=== PATIENT | female | born 1955 | race Caucasian/White ===

== ENCOUNTER → 2024-02-05 06:52 | Outpatient (REF) | payer MEDICARE, OTHER, SELFPAY ==
[2024-02-05 07:49] LABS: % Basophils 0.4 % (0-2); % Eosinophils 3.1 % (0-6); % Immature Granulocytes 0.4 % (0-0.5); % Lymphocytes 31.3 % (20.5-51.1); % Monocytes 12.6 % (1.7-9.3); % Neutrophils 52.2 % (42.2-75.2); Absolute Eosinophils 0.1 10^3/uL (0-0.7); Absolute Lymphocytes 1.4 10^3/uL (1.2-3.4); Absolute Monocytes 0.6 10^3/uL (0.1-0.6); Absolute Neutrophils 2.4 10^3/uL (1.4-6.5); Hematocrit 34.8 % (37.0-47.0); Mean Corp Hgb Conc. 34.5 g/dL (33.0-37.0); Mean Corpuscular Hgb 31.1 pg (27.0-31.0); Mean Corpuscular Volume 90.2 fL (81.0-99.0); Mean Platelet Volume 10.7 fL (7.4-10.4); Nucleated Red Blood Cells % 0 %; Platelet Count 176 10^3/uL (130-400); Red Blood Cell Count 3.86 10^6/uL (4.20-5.40); Red Cell Dist. Width 12.5 % (11.5-14.5); White Blood Cell Count 4.5 10^3/uL (4.8-10.8)
[2024-02-05 08:17] LABS: ALT (SGPT) 50 U/L (0-35); AST (SGOT) 33 U/L (14-36); Albumin 4.2 g/dl (3.5-5.0); Alkaline Phosphatase 76 U/L (38-126); Blood Urea Nitrogen 15 mg/dl (7-17); Calcium 9.7 mg/dl (8.4-10.2); Carbon Dioxide 25 mmol/L (22-30); Chloride 103 mmol/L (98-107); Glucose 108 mg/dl (70-99); HDL Cholesterol 77 mg/dl; LDL Cholesterol, Calculated 52 mg/dl; Potassium 4.4 mmol/L (3.5-5.1); Sodium 140 mmol/L (135-145); Total Bilirubin 1.1 mg/dl (0.2-1.3); Total Cholesterol 165 mg/dl (50-199); Total Protein 6.4 g/dl (6.3-8.2); Triglyceride 181 mg/dl (10-149); Very Low Density Lipoprotein 36 mg/dl (0-30); eGFR > 60.00
[2024-02-05 08:53] LABS: Glycohemoglobin (HgbA1c) 5.8 % (4.0-5.6)
== END ==
LOC: REG 06:52
PROVIDERS: ATTENDING PHYSICIAN Family Medicine
DX: R73.03 Prediabetes (principal); E78.2 Mixed hyperlipidemia; R53.83 Other fatigue
CPT/HCPCS: 36415; 80053; 80061; 83036; 85025

== ENCOUNTER → 2024-02-23 09:58 | Outpatient (REF) | payer MEDICARE, OTHER, SELFPAY | LOC: HWRAD 09:58 | PROVIDERS: ATTENDING PHYSICIAN Family Medicine | DX: F17.210 Nicotine dependence, cigarettes, uncomplicated (principal); Z12.2 Encounter for screening for malignant neoplasm of respiratory organs | CPT/HCPCS: 71271 ==

== ENCOUNTER 2024-03-09 07:54 | Day surgery (SDC) | payer MEDICARE, OTHER, SELFPAY ==
[2024-02-26 08:52] VITALS: BMI 26.7
[2024-03-09] VITALS (8 sets, daily range): BP systolic 125–160; BP diastolic 75–92; BMI 25.9
[2024-03-09 11:48] LABS: ACT-LR - POC 189 Seconds (116-155)
[2024-03-09 11:54] LABS: ACT-LR - POC 343 Seconds (116-155)
[2024-03-09 12:15] LABS: ACT-LR - POC 313 Seconds (116-155)
[2024-03-09 12:44] LABS: ACT-LR - POC 342 Seconds (116-155)
--- NOTE | 2024-03-09 13:00 | ITS.CL.ABL ---
[employer] - Ablation
Ablation
Procedure Report:
AFIB ablation:
Ms. Pimentel is a very pleasant 68 yr old woman with symptomatic persistent AF s/p AF ablation 2022 with PVI (RF with RACHEL) had recurrent atrial fibrillation / flutter with baseline bradycardia limiting use of negative chronotropic agents is
recommended a redo AF / AFL ablation.
Date of the Procedure:
03/09/2024
Indications:
Persistent with recurrent atrial fibrillation / Flutter
Pre-Operative Diagnosis:
Persistent with recurrent atrial fibrillation / Flutter
Post-Operative Diagnosis:
Persistent with recurrent atrial fibrillation / Flutter
Procedure Performed:
Atrial fibrillation ablation with Pulsed-Field approach for pulmonary vein isolation
Posterior wall isolation
Mitral flutter ablation
Left atrial anterior wall focal tachycardia ablation
Biatrial flutter ablation
Focal left atrial appendage tachycardia
Performing Physician:
Shmuel Alston MD
Assistants:
EP staff
Anesthesia:
See anesthesia records
Detailed Description of the Procedure:
Written informed consent was obtained from the patient after a full explanation of the risks and benefits of the procedure including the risks of sedation and anesthesia.
The patient was brought to the electrophysiology laboratory in stable condition in fasting state. Continuous electrocardiographic and hemodynamic monitoring was initiated.
The initial rhythm was sinus bradycardia that went into atrial flutter spontaneously.
The procedure site was meticulously prepared with surgical scrub and allowed to dry with no pooling. Sterile draping was applied to cover the procedure site. The image intensifier was draped with sterile bag and positioned over the patient. After
infusion of local anesthetic, vascular access was obtained under ultrasound guidance and sheaths were placed over guide wire as detailed below.
Sheath and Catheter Placement:
The following catheters / sheaths were placed
Sheaths:
��������� 17Fr steerable sheath (Faradrive�, [place]) in right femoral
��������� 9Fr in right femoral vein
Catheters:
��������� RACHEL HD Grid mapping catheter � at locations of RA, LA
��������� Farawave� PFA catheter
��������� ICE catheter -AcuNav - at locations of RA, SVC, and RV.
��������� Decapolar Bard catheter in RA and CS
Intracardiac ECHO:
An 8-Liberian AcuNav intracardiac ECHO (ICE) probe was advanced through the 9-Liberian sheath in the right femoral vein into the right atrium under fluoroscopic and ICE ultrasound image guidance and a baseline ECHO study was performed. The left atrial
size was dilated. There was moderate tricuspid regurgitation. The aortic valve was grossly normal. There was normal left ventricular systolic functions. There is no pericardial effusion. All the four veins were identified and has flow identified.
There was sluggish flow noted in the BESSY with decreased velocities noted on Doppler.
During the procedure, ICE was used for monitoring of complications, guidance of trans-septal puncture, monitor the catheter position and tracking ablation lesions. No change in the pericardial space noted throughout the procedure.
Trans-septal Puncture:
Heparin was initiated and infused to maintain appropriate ACT. A pigtail guidewire was advanced through the 8-Liberian sheath in the right femoral vein into the superior vena cava under fluoroscopic and ICE guidance. The 9-Liberian sheath was exchanged
for a Faradrive sheath which was advanced into the superior vena cava. A transseptal RF pigtail via Faradrive connect system was utilized to perform the trans-septal puncture. The apparatus was withdrawn until it was in contact with the fossa
ovalis. The position was adjusted based on fluoroscopy and ultrasound images from ICE. Under fluoroscopic, hemodynamic and ICE ultrasound guidance, left atrium was cannulated by applying RF energy. Once atrial septum was cannulated, the pigtail wire
was advanced through the needle into the left atrium. The guide wire was advanced into the left superior pulmonary vein. Both the sheath and the dilator was advanced into the left atrium. The dilator with the needle was withdrawn. Blood was
aspirated from the Faradrive sheath and arterial blood confirmed. The sheath was flushed. Saline injection noted into the left atrium on ICE. The mapping catheter was advanced in the sheath into the left pulmonary vein. Left atrial pressure was
measured.
3D Electroanatomic Mapping:
Using the HD Grid catheter advanced through sheath into the left atrium, an electroanatomic map (EAM) of the left atrium was created using [employer] RACHEL mapping system. The map was used for localization of catheter position and tacking of ablation
lesions.
The EAM of the left atrium showed 4 pulmonary veins with all 4 veins electrically isolated from the body the LA. It showed scattered areas of scar on the anterior wall of the LA. The LA was dilated in size.
The LA was dilated in size.
Following the EAM, preparation were made for ablation.
Ablation:
Ablation # 1: Pulmonary vein Isolation:
Glycopyrrolate 0.2 mg was given prior to the placement of ablation. Given the PVs were isolated from the previous ablation, decision was made to extend the WACA lesions. Using Farave pulsed wave ablation system, pulmonary vein isolation was
achieved. First the ablation catheter was placed in the RSPV and ostial ablation lesions were performed in a counter clock henriquez approach all around the PV ostium circumferentially. Then the catheter was placed on the antral location and multiple
ablation lesions were placed circumferentially on the antrum of the vein.
In the similar fashion, the other veins were extended widely as well.
Patient remained in atrial flutter.
Ablation # 2: Roof line and Posterior wall isolation:
With atrial flutter, present and scar on the anterior wall, decision was made to create the roof block first. A series of ablations were placed from RSPV to LSPV in the roof of the LA.�
The flutter continued.
Using the pulsed field ablation catheter, the catheter was placed on the posterior wall and moved around the posterior wall to have adequate contact and ablations were placed isolating the posterior wall.
Electroanatomic mapping of LA
Once the sinus rhythm achieved, the LA was mapped with HD grid in detail. The tachcyardia was involving the anterior wall and revolving around a scar to the mitral valve.
Ablation # 3: Mitral Flutter ablation:
The flutter was entrained from the right and the left atria. The right side was out. The left atrium was in the tachycardia.
The flutter was mapped but degenerated into atrial fibrillation.
Using the Farapulse ablation catheter, the ablation catheter was put on the anterior wall of the LA with already scar present. Ablations were placed on anterior wall from roof to the mitral isthmus. The tachycardia terminated into sinus rhythm.
EPS and Confirmation of the PVI and bidirectional block:
Following achievement of entrance block at the pulmonary veins, pacing from the HD catheter in each of the four veins at 10 milliamps for 2 milliseconds showed entrance and exit block. All PVI were rechecked at the end of the case and remained
isolated with dissociated and local capture with pacing. Entrance and exit block were demonstrated in all veins.
The LA was mapped in atrial paced rhythm. Patient remained in atrial paced for few minutes and with mapping the LA went into tachycardia. The tachycardia was fast 240 msec.
Ablation # 4: Focal/Micro-reentry atrial tachycardia ablation:
The tachycardia was fast (240 ms)but entrainment was attempted from the RA. The RA was out of the tachycardia circuit. The tachycardia was entrained but was difficult to assess the focal vs re-entry due to intermittent capture of the LA and
extensive scarring. The mapping was done using HD grid showing the origin in the anterior wall of the LA.
The farapulse ablation catheter was moved into a flower shape and placed on origin with focal AT vs micro-rentry AFL. With placement of the ablation, the tachycardia terminated.
The tachycardia was again inducible and was noted at the earliest at the Atiya bundle location with concentric in CS activation.
Ablation # 5: Bi-Atrial Flutter Ablation:
Using the Farapulse ablation catheter, the flower was placed on the atrial septum at the Atiya bundle location and ablation was placed terminating the tachycardia to sinus rhythm.
Further induction maneuvers again able to induce another tachycardia at 220 ms and was again mapped.
Ablation # 5: Focal AT vs microreentry tachycardia from the left atrial appendage.
The tachycardia was mapped and was noted to be coming from the anterior base of the BESSY. This is close to the mitral isthmus and with concern for LCx injury, the ablation catheter shaped was modified to an elongated [place] and was placed at the base
of the anterior BESSY. The catheter bump terminated the tachycardia and ablation was applied to suppress further induction.
Post ablation Electroanatomic mapping:
Once ablation was completed, the EAM of the LA was done again in sinus rhythm with excellent demarcation of LA myocardium and isolated antral tissue.
The BESSY had healthy signals and was not isolated.
Procedure End
ICE study was done again that showed no epicardial accumulation. No complications noted.
Following the completion of the EP study, catheters were removed. Protamine 30 mg was given at the end of the procedure and ACT was checked repeatedly. The sheaths were removed and hemostasis achieved with VASCADE and manual compression after
acceptable ACT is achieved.
Left atrial Pressure:
Mean LA pressure was 11mmHg
Estimated Blood loss:
<10 cc
Specimens Removed:
None.
Implants / Devices:
None
Urine output:
None
Packs / Drains/ Tubes:
None
Instrument / Sponge Count Correct:
Yes
Complications of the Procedure:
None
Condition of Patient at Time of Transfer:
Hemodynamically stable with no neurological or vascular compromise.
Summary:
Successful atrial fibrillation ablation with Pulsed Field approach for pulmonary vein isolation, posterior wall isolation, Mitral flutter ablation, Left atrial anterior wall focal tachycardia ablation, Biatrial flutter ablation, Focal Atrial
tachycardia from the left atrial appendage.
Figures from the Procedure:
Figure 1: The electroanatomic mapping (EAM) of the left atrium with bipolar voltage (purple indicates normal electrical activity with del cid as no myocardial muscle electric activity indicating a line of block or scar.
[2024-03-09] MEDS: ANESTHETIC LOZENGE 1 LOZENGE PO (13:31)
[2024-03-09] MEDS: TYLENOL 650 MG PO (14:38)
[2024-03-09 15:07] LABS: ACT-LR - POC > 397 Seconds (116-155)
--- NOTE | 2024-03-09 16:17 | W.PN.UPDATE ---
Update Note
Progress Note Update
68 yo WF s/p PVI/Aflutter ablation (same day). She feels good, no cp, sob, raghu diet, voiding, amb w/o dizziness, EKG SR with RBBB, PAC's, R fem site c/d/i VASCADE. She will resume Eliquis tonight at home. Activity restrictions reviewed. She will f/u
CERTIFIED MEDICAL AIDE in 2 weeks. She is for d/c home after 5pm if groin stable.
Procedure Performed:
Atrial fibrillation ablation with Pulsed-Field approach for pulmonary vein isolation
Posterior wall isolation
Mitral flutter ablation
Left atrial anterior wall focal tachycardia ablation
Biatrial flutter ablation
Focal left atrial appendage tachycardia
== END 2024-03-09 17:00 | disposition home or self-care (01) ==
LOC: CATH 07:54
PROVIDERS: ATTENDING PHYSICIAN Internal Medicine Cardiovascular Disease; FAMILY PHYSICIAN Family Medicine; OTHER PHYSICIAN Internal Medicine Cardiovascular Disease
DX: I48.19 Other persistent atrial fibrillation (principal); I49.8 Other specified cardiac arrhythmias; I48.92 Unspecified atrial flutter; Z79.01 Long term (current) use of anticoagulants; Z79.899 Other long term (current) drug therapy; R73.03 Prediabetes; I10 Essential (primary) hypertension; E78.5 Hyperlipidemia, unspecified
CPT/HCPCS: C1732; C1894; C1730; C1892; C1759; 85347; 93005; 93655; 93656; 93657; C1733; C1760; C1766

== ENCOUNTER 2024-12-03 14:33 | Emergency (ER) | payer MEDICARE, OTHER, SELFPAY ==
[2024-12-03] VITALS (20 sets, daily range): BP systolic 95–152; BP diastolic 44–104; BMI 27.4
[2024-12-03 15:22] LABS: Hematocrit 36.6 % (37.0-47.0); Hemoglobin 12.8 g/dL (12.0-16.0); Mean Corp Hgb Conc. 35.0 g/dL (33.0-37.0); Mean Corpuscular Volume 89.9 fL (81.0-99.0); Nucleated Red Blood Cells % 0 %; Platelet Count 203 10^3/uL (130-400); Red Cell Dist. Width 11.9 % (11.5-14.5)
--- NOTE | 2024-12-03 15:23 | ED.GENMED ---
History of Present Illness
General
Chief Complaint: Chest Pain
Source: patient and other (Friend)
Exam Limitations: none
Time Seen by Provider: 12/03/24 15:23
History of Present Illness
History of Present Illness:
68-year-old female presents emergency department after taking a nap and waking at approximate 1:45 PM because her watch woke her up signaling that her heart rate was elevated. She took her blood pressure and it was elevated which prompted her visit
here. She states that since she woke up from the nap she feels slightly dyspneic and nauseous but denies chest pain, fever, chills, vomiting, leg swelling, or other complaints. Patient has a history of atrial fibrillation, status post ablation
March 2024, states she has not been in atrial fibrillation to her knowledge since that time. She is compliant with her anticoagulation and is not currently taking rate controlling medications.
Past History
Past History
ED Past Medical History: Arrthythmia (Paroxysmal atrial fibrillation), HTN, Hypercholesterolemia and Other (Prediabetes)
ED Past Surgical History: Orthopedic and Other (Cataract surgery bilaterally)
Social History
Tobacco: Smoker
Alcohol: Occasional
Drug: None
Personal:
Living: alone
Phy Exam
Physical Exam
Physical Exam:
GENERAL: Alert , in no apparent distress
EYE: pupils equal and reactive
NECK: Supple, no significant adenopathy.
ENT: o/p clr, mmm.
CARDIAC: Irregularly irregular, tachycardic
LUNGS: Clear breath sounds bilaterally, no acute respiratory distress, no wheezes rales or rhonchi
ABDOMEN: Soft, without focal tenderness, no r/g, no cvat
NEUROLOGICAL: Alert and oriented, no focal neuro deficits
SKIN: Warm and dry, skin intact.
MUSCULOSKELETAL: No edema, well perfused.
PSYCH: Normal and appropriate interaction.
Scores
Heart Score for Chest Pain Patients
STEMI patient?: Not applicable
Course
Orders/Labs/Results
Orders:
Orders
12/03/24 14:36
Electrocardiogram (*1) Urgent
Reason for Study: Chest Pain
EKG- Treatment ONCE
12/03/24 15:08
CBC/With Diff [Complete Blood Count/With Diff] Urgent
CMP [Comprehensive Metabolic Panel] Urgent
Free T4 Urgent
Magnesium Urgent
TSH Reflex To Free T4 Urgent
12/03/24 16:05
Propofol [Diprivan] 20 ml .ROUTE .STK-MED
12/03/24 16:23
EKG [Electrocardiogram (*1)] Urgent
Reason for Study: Atrial Fibrillation
EKG- Treatment ONCE
Abnormal Lab Results
12/03/24
15:08
RBC 4.07 L 10^6/uL
(4.20-5.40)
Hct 36.6 L %
(37.0-47.0)
MCH 31.4 H pg
(27.0-31.0)
MPV 10.9 H fL
(7.4-10.4)
BUN 18 H mg/dl
(7-17)
Glucose 100 H mg/dl
(70-99)
Calcium 10.5 H mg/dl
(8.4-10.2)
AST 40 H U/L
(14-36)
ALT 51 H U/L
(0-35)
TSH (Reflex) 0.12 L uIU/ml
(0.47-4.68)
12/03/24 15:08
12/03/24 15:08
Vital Signs
Initial and Last Documented VS:
Initial Vital Signs
Temp Pulse Resp BP Pulse Ox
98.4 F 139 20 152/101 97
12/03/24 14:42 12/03/24 14:42 12/03/24 14:42 12/03/24 14:42 12/03/24 14:42
Last Documented Vital Signs
Temp Pulse Resp BP Pulse Ox
98.4 F 58 18 116/73 99
12/03/24 17:20 12/03/24 17:30 12/03/24 17:30 12/03/24 17:30 12/03/24 17:30
Procedures
Cardioversion
Indication:: Afib
Performed by:: kaylee Keller md (Agatha mariano)
Synchronized?: Yes
Energy Used: 200 joules
Number of attempts: 1
Successful?: Yes
ASA Risk Score: Class I
Any reaction or bad outcome to prior sedation/anesthesia?: No history of a reaction
Sedation level to be attained: moderate
Chart and allergies reviewed: Yes
Patient reassessed prior to sedation: Yes
Time out completed at (validating right patient & procedure): 16:18
History of difficult intubation: No
Airway free of obstruction: Yes
Patient has a gag reflex: Yes
Patient is able to open mouth: Yes
Patient has no dentures: Yes
Patient has no loose teeth: Yes
Medication administered by Provider during Moderate Sedation: IV Propofol (mg)
Total dose administered: 90
Time drug administered: 16:18
Start Time: 16:18
Stop Time: 16:33
*Pulse Oximetry
SaO2: 97
Oxygen Mode of Delivery: Room air
Patient hypoxic: no
*Critical Care Note
Total Time (30-74mins, 75-104mins- exclusive of procedures): 31
Update Note
Update Note:
Patient presents to the Emergency Department with ____watch alarm, mild dyspnea and nausea
Number and Complexity of Problems Addressed at the Encounter
� Chronic conditions affecting care:
� Acute Exacerbation and/or Progression of Chronic Illness:
� Differential Diagnosis includes: A-fib with RVR, SVT, a flutter, PE, etc. etc.
Amount and/or Complexity of Data to be Reviewed and Analyzed
� I performed an independent evaluation of and my interpretation is:
EKG: Read by me and compared to prior, atrial fibrillation with RVR, right bundle branch block which is unchanged, T wave inversions inferiorly which are unchanged
CT:
Xrays:
Laboratory Studies:tsh decreased but T4 wnl, nonspec mild lft abnl
Other:
� Review of other/old records reveals: Patient had an ablation here March 2020 for
� Clinical information was obtained by an independent historian: Friend who is bedside
� Prescriptions/Medications Considered but not given:
� Further testing considered but not performed:
Risk of Complications and/or Morbidity or Mortality of Patient Management
� Social determinants of health affecting care:
� Discussion with other providers (PCP, Hospitalists, Consultants, etc):
� Escalation of care including admission/observation vs risk of discharge considered:Patient with atrial fibrillation with RVR with associated dyspnea and nausea. Vital signs are stable, no hypotension or hypoxia, heart rate
noted to be elevated. Long discussion with patient regarding her options for rate control versus cardioversion in the emergency department, she elects cardioversion. She reaffirms that she has not missed any recent doses of her anticoagulation.
Risk and benefits of procedure discussed with her and consent signed.
4:46 PM repeat ECG normal sinus rhythm, no acute ischemia
518 pm Pt feels well, no acute comlpnts, aao times three, does not recall procedure and is pleased she is in nsr. Dw pt lab findings import of fu, continuing doac, and reasons to rted.
ED Attending Note
-
Portions of this chart may have been created with voice recognition software.� Occasional wrong word or��sound alike� substitutions may have occurred due to the inherent limitations of voice recognition software.
Discharge Plan
Departure
Patient Disposition: Home (Routine Discharge)
Date of Disposition: 12/03/24
Time of Disposition: 17:18
Patient with high blood pressure during this ER visit?: Yes
Condition: Good
Discharge Problem:
Atrial fibrillation
Instructions: Atrial fibrillation (DC), Cardioversion (DC), MODERATE SEDATION ADULT, BLOOD PRESSURE
Prescriptions:
No Action
atorvastatin 20 MG tablet
20 mg PO DAILY
lisinopril 40 MG tablet
40 mg PO DAILY
Eliquis 5 MG tablet
5 mg PO BID
[id number]-Ca carb-vit K 18 mg iron-400 mcg-500 mg Tablet
1 tab PO DAILY
Referrals:
Mehul Calabrese MD [Active, Cardiology] - Next open appointment
Activity Restrictions/Additional Instructions:
PLEASE CONTACT YOUR MONOTYPE OPERATOR PROMPTLY FOR CLOSE FOLLOW-UP. IT IS VERY IMPORTANT THAT YOU CONTINUE YOUR BLOOD THINNING MEDICATION DIRECTED AND NOT MISS ANY DOSES. IF YOU DEVELOP CHEST PAIN, SHORTNESS OF BREATH, DIZZINESS, BLEEDING, NAUSEA,
OR OTHER WORRISOME SIGNS, PLEASE RETURN TO THE ER IMMEDIATELY!
Interventions
Interventions:
*Risk Screen - Suicide Last Done: 12/03/24 14:42
*General Assessment Last Done: 12/03/24 14:42
*Neglect/Abuse Screening Last Done: 12/03/24 15:20
*ED- Fall Risk Assessment Last Done: 12/03/24 15:20
*ED COVID-19 Vaccine History Last Done: 12/03/24 16:30
*Nursing Disposition Last Done: 12/03/24 18:07
ED- Cardiac Assessment Last Done: 12/03/24 15:20
Discharge Date and Time
Discharge Date/Time: 12/03/24 18:08
Print Language: ROMANSH
[2024-12-03 15:48] LABS: ALT (SGPT) 51 U/L (0-35); AST (SGOT) 40 U/L (14-36); Albumin 5.0 g/dl (3.5-5.0); Alkaline Phosphatase 69 U/L (38-126); Blood Urea Nitrogen 18 mg/dl (7-17); Calcium 10.5 mg/dl (8.4-10.2); Carbon Dioxide 24 mmol/L (22-30); Chloride 107 mmol/L (98-107); Glucose 100 mg/dl (70-99); Magnesium 1.6 mg/dl (1.6-2.3); Potassium 4.1 mmol/L (3.5-5.1); Sodium 141 mmol/L (135-145); Total Protein 7.5 g/dl (6.3-8.2); eGFR > 60.00
== END 2024-12-03 18:08 | disposition home or self-care (01) ==
LOC: EMR 14:33
PROVIDERS: Emergency Medicine; EMERGENCY PHYSICIAN Emergency Medicine; FAMILY PHYSICIAN Family Medicine
DX: I48.91 Unspecified atrial fibrillation (principal); E78.00 Pure hypercholesterolemia, unspecified; I10 Essential (primary) hypertension; I45.10 Unspecified right bundle-branch block; F17.200 Nicotine dependence, unspecified, uncomplicated
CPT/HCPCS: 92960; 99152; 99285; 80053; 83735; 84439; 84443; 85025; 93005

== ENCOUNTER → 2024-12-27 11:53 | Outpatient (REF) | payer MEDICARE, OTHER, SELFPAY | LOC: DHSLP 11:53 | PROVIDERS: ATTENDING PHYSICIAN Family Medicine | DX: G47.30 Sleep apnea, unspecified (principal); R06.83 Snoring | CPT/HCPCS: 95800 ==

== ENCOUNTER → 2025-02-24 08:26 | Outpatient (REF) | payer MEDICARE, OTHER, SELFPAY | LOC: HWRAD 08:26 | PROVIDERS: ATTENDING PHYSICIAN Family Medicine | DX: Z87.891 Personal history of nicotine dependence (principal) | CPT/HCPCS: 71271 ==

== ENCOUNTER → 2025-03-26 10:26 | Outpatient (REF) | payer MEDICARE, OTHER, SELFPAY | LOC: PAVMRI 10:26 | PROVIDERS: ATTENDING PHYSICIAN Nurse Practitioner Adult Health | DX: M54.50 Low back pain, unspecified (principal); M48.061 Spinal stenosis, lumbar region without neurogenic claudication | CPT/HCPCS: 72148 ==